=== PATIENT | female | born 1950 | race Caucasian/White ===

== ENCOUNTER 2016-04-11 12:42 | Outpatient (CLI) | payer OTHER ==
--- NOTE | 2016-04-11 14:15 | DIAGNOSTIC IMAGING REPORT ---
PROCEDURE: DEXA BONE DENSITY STUDY CLINICAL INDICATION: SCREENING COMPARISON: DEXA dated 02/25/2014 FINDINGS: LUMBAR SPINE: Bone mineral density 0.818 g/cm2, T score -2.1 osteopenia which represents a 2.1% decrease from the previous study LEFT HIP: Bone mineral density 0.789 g/cm2, T score -1.3 osteopenia which represents a 2.8% improvement from the previous study LEFT FEMORAL NECK: Bone mineral density 0.631 g/cm2, T score -2.0 osteopenia which represents a 1.1% improvement from the previous study FRACTURE RISK CALCULATION ( when applicable): 10-year fracture risk of a major osteoporotic fracture 8.8% and of a hip fracture 1.3% (T score greater or equal to -1.0 to: NORMAL) (T score from -1.1 to -2.4: OSTEOPENIA) (T score ess than or equal to -2.5: OSTEOPOROSIS) IMPRESSION: 1. Improving osteopenia in the hip and femoral neck. 2.1% decrease in bone mineral density in the lumbar spine.
--- NOTE | 2016-04-11 15:49 | DIAGNOSTIC IMAGING REPORT ---
PROCEDURE: US SOFT TISSUE THYR/NECK/HEAD INDICATION: THYROID CYST;GOITER TECHNIQUE: Calabrese scale and color Doppler sonographic images of the thyroid gland were obtained. COMPARISON: Thyroid ultrasound 02/25/2014. FINDINGS: RIGHT LOBE: Measures 4.7 x 1.1 x 1.4 cm. Slight progression of the sharply marginated complex 1.4 cm nodule in the upper pole. Stable 1.1 cm solid nodule in the mid pole. No new nodules ( LEFT LOBE: Measures 3.9 x 1.2 x 1.3 cm. There are two cystic lesions in the upper pole measuring 0.9 and 0.5 cm. No new nodules. ISTHMUS: Measures 3 mm IMPRESSION: 1. Stable multinodular thyroid gland
--- NOTE | 2016-04-11 19:37 | DIAGNOSTIC IMAGING REPORT ---
PROCEDURE: MG BILATERAL SCREENING W/CAD INDICATION: Screening. Family history breast carcinoma (aunt). TECHNIQUE: Bilateral CC and MLO digital views. COMPARISON: Compared to 02/25/2014, 01/08/2013, and 12/21/2011. FINDINGS: Computer-aided detection applied. Moderately dense. No change. IMPRESSION: 1. Negative mammogram RESULT CODE: 1- Negative. A. A negative report should not delay biopsy if a dominant or clinically suspicious mass is present. 10-15% of cancers are not identified by x-ray. B. A negative report may reinforce clinical impression. C. Adenosis and dense breasts may obscure an underlying neoplasm. D. False positive reports average 6-10%. E.. A yearly screening mammogram is recommended. A reminder letter will be scheduled.
== END 2016-04-11 23:00 ==
LOC: US SRH 12:42 → MAM SRH 04-13 11:00
DX: M85.88 Other specified disorders of bone density and structure, other site (principal); E04.1 Nontoxic single thyroid nodule; Z12.31 Encounter for screening mammogram for malignant neoplasm of breast; Z80.3 Family history of malignant neoplasm of breast